=== PATIENT | female | born 1945 | race Caucasian/White ===

== ENCOUNTER 2018-07-25 13:32 | Outpatient (CLI) | payer MEDICARE, BC ==
[2018-07-25] MEDS ORDERED: IOPAMIDOL-300 50 ML VIAL ONE (13:44)
[2018-07-25] MEDS ORDERED: IOPAMIDOL-300 100 ML VIAL ONE (13:44)
[2018-07-25 14:07] LABS: CREATININE 0.8 mg/dL (0.4-1.0)
[2018-07-25] MEDS ORDERED: IOPAMIDOL-300 100 ML VIAL IVP ONE (15:41)
--- NOTE | 2018-07-25 16:47 | CT Report ---
Reason: NEW ONSET HEADACHE, ABDOMINAL PAIN Procedure Date: 07/25/2018 Accession Number: [id number] / [id number] Procedure: CT - Head W/O CPT Code: FULL RESULT: EXAM: CT HEAD EXAM DATE: 07/25/2018 03:40 PM. CLINICAL HISTORY: New onset headache COMPARISON: None. TECHNIQUE: Multiaxial CT images were obtained from the foramen magnum to the vertex. Reformats: Sagittal and coronal. IV contrast: None. In accordance with CT protocol optimization, one or more of the following dose reduction techniques were utilized for this exam: automated exposure control, adjustment of mA and/or KV based on patient size, or use of iterative reconstructive technique. FINDINGS: Parenchyma: No intraparenchymal hemorrhage. No evidence of mass, midline shift, or CT findings of infarction. May-white differentiation is distinct. Extraaxial Spaces: Normal for age. No subdural or epidural collections identified. Ventricles: Normal in size and position. Sinuses and Orbits: Imaged paranasal sinuses, orbits, and mastoids show no significant abnormality. Bones: No evidence of fracture or calvarial defect. Other: None. IMPRESSION: Normal head CT. RADIA
--- NOTE | 2018-07-25 16:56 | CT Report ---
Reason: NEW ONSET HEADACHE, ABDOMINAL PAIN Procedure Date: 07/25/2018 Accession Number: [id number] / [id number] Procedure: CT - Abdomen/Pelvis W/ CPT Code: FULL RESULT: EXAM: CT ABDOMEN AND PELVIS EXAM DATE: 07/25/2018 03:40 PM. CLINICAL HISTORY: Diffuse abdominal pain COMPARISONS: None. TECHNIQUE: Routine helical CT imaging was performed through the abdomen and pelvis. IV contrast: Isovue-300 100 cc. Enteric contrast: Yes. Reconstructions: Coronal and sagittal. In accordance with CT protocol optimization, one or more of the following dose reduction techniques were utilized for this exam: automated exposure control, adjustment of mA and/or KV based on patient size, or use of iterative reconstructive technique. FINDINGS: Lung Bases: Unremarkable. Liver: Normal. No masses. Gallbladder/Bile Ducts: Post cholecystectomy Spleen: Normal. Pancreas: Normal. Adrenal Glands: Normal. Kidneys: Right renal cyst 2 cm. Left kidney superior pole 1.1 cm cyst with possible septation. Smaller subcentimeter densities left kidney too small to characterize. Peritoneal Cavity/Bowel: Diverticulosis. No free fluid, free air or adenopathy. No masses or acute inflammatory process. The appendix is well visualized and normal. Pelvic Organs: Normal. The bladder and visualized pelvic organs are within normal limits. Vasculature: Atherosclerotic changes Bones: DJD spine. Other: None. IMPRESSION: 1. Left kidney 1.1 cm superior pole cyst with possible septation. Further evaluation could be with CT renal protocol 2. Simple cysts right kidney. 3. Diverticulosis RADIA
== END 2018-07-25 13:33 | disposition home or self-care (01) ==
LOC: DI 13:32
PROVIDERS: ATTEND Physician Assistant
DX: R51 Headache (principal); R10.9 Unspecified abdominal pain; N28.1 Cyst of kidney, acquired; K57.90 Diverticulosis of intestine, part unspecified, without perforation or abscess without bleeding
CPT/HCPCS: 36415; 70450; 74177; 82565; Q9967

== ENCOUNTER 2019-07-10 10:06 | Outpatient (CLI) | payer MEDICARE, BC ==
--- NOTE | 2019-07-13 08:27 | Mammography Report ---
Reason: SCREENING MAMMO Procedure Date: 07/10/2019 Accession Number: [id number] / [id number] Procedure: MGS - Screening Mammo Dig Bilat CPT Code: FULL RESULT: EXAM: Screening Mammo Dig Bilat DATE: 07/10/2019 10:25 AM CLINICAL HISTORY: Screening encounter. History of early menses. TECHNIQUE: (B) - Bilateral CC and MLO views were obtained. COMPARISON: 04/23/2016 and 12/23/2013. PARENCHYMAL PATTERN: (F) - The breast(s) demonstrate(s) diffuse fatty replacement. FINDINGS: There are no suspicious masses, calcifications, or areas of distortion. IMPRESSION: Negative examination. BI-RADS category 1. RECOMMENDATION: (ANNUAL) - Recommend routine annual screening mammography. BI-RADS CATEGORY: (1) - Negative. STANDARD QUALIFYING STATEMENTS: 1. This examination was reviewed with the aid of Computer-Aided Detection (CAD). 2. A negative or benign imaging report should not preclude biopsy if clinically suspicious findings are present. 3. Dense breasts may obscure an underlying neoplasm. 4. This examination was reviewed without the aid of 3D breast imaging (tomosynthesis).
== END 2019-07-10 10:07 | disposition home or self-care (01) ==
LOC: DI.S 10:06
PROVIDERS: ATTEND Family Medicine
DX: Z12.31 Encounter for screening mammogram for malignant neoplasm of breast (principal)
CPT/HCPCS: 77067

== ENCOUNTER 2020-02-29 16:21 | Emergency (ER) | payer MEDICARE, BC ==
[2020-02-29] MEDS ORDERED: CHERRY SYRUP 10 ML UDC PO ONE (16:48)
[2020-02-29] MEDS ORDERED: DEXAMETHASONE 10 MG/ML VIAL PO STA (16:48)
[2020-02-29] MEDS ORDERED: IPRATROPIUM/ALBUTEROL 3 ML NEB INH STA (16:48)
[2020-02-29] MEDS ORDERED: BENZONATATE 100 MG CAPSULE PO STA (16:58)
--- NOTE | 2020-02-29 17:51 | XRAY Report ---
Reason: chest pain Procedure Date: 02/29/2020 Accession Number: [id number] / [id number] Procedure: XR - Chest 1 View X-Ray CPT Code: 89692 Final Report FULL RESULT: EXAM: CHEST RADIOGRAPHY EXAM DATE: 02/29/2020 05:08 PM. CLINICAL HISTORY: Chest pain. COMPARISON: None. TECHNIQUE: 1 view. FINDINGS: Lungs/Pleura: Mild central bronchial wall thickening is noted. Hazy bibasilar pulmonary opacities are noted. No evidence for pleural effusion or pneumothorax. Mediastinum: Within exam limitations, the cardiomediastinal contour is normal. Other: None. IMPRESSION: 1. Central bronchial wall thickening could reflect underlying reactive airways or bronchitis. 2. Lower lung predominant hazy opacities could reflect atelectasis or possibly mild infection. RADIA
--- NOTE | 2020-02-29 18:10 | ED Physician Documentation ---
PD HPI URI - Stated complaint Stated Complaint: DIFFICULTY BREATHING - Chief complaint Chief Complaint: Resp - History obtained from History obtained from: Patient - History of Present Illness Timing - onset: How many days ago (10) Timing duration: Days (10) Timing details: Gradual onset, Still present, Waxing and waning Associated symptoms: Nasal congestion, Rhinorrhea, Dry cough, Chest pain, Dyspnea. No: Fever Contributing factors: Sick contact (the patient has a 5 y/o grandson whom she cares for one week at a time. She has not seen him in 3 weeks.) Improves by: Rest, Medication, MDI/nebulizer Similar symptoms before: Diagnosis (rad) Recently seen: Not recently seen - Additional information Additional information: Previously well 74-year-old female has developed a cough and congestion over the past 10 days. She does have a 5-year-old grandson that she sits and she has not seen him for 3 weeks. She does state that 2 of his teachers have tested positive for coronavirus. She states that she is not producing phlegm she has had a bimodal illness where she had cough and congestion that improved and then she got sicker and now is lost her voice as well. She feels some tightness in her chest some difficulty breathing she got some relief with an inhaler she is out of her inhaler this morning and she did go to the tent outside and be tested for the coronavirus prior to coming into the emergency department. Review of Systems Constitutional: reports: Fatigue. denies: Fever Eyes: denies: Decreased vision Ears: denies: Ear pain Nose: reports: Rhinorrhea / runny nose, Congestion Throat: reports: Sore throat Cardiac: reports: Chest pain / pressure. denies: Palpitations, Pedal edema, Calf pain Respiratory: reports: Dyspnea, Cough GI: denies: Abdominal Pain, Abdominal Swelling, Nausea, Vomiting : denies: Dysuria PD PAST MEDICAL HISTORY - Past Medical History Past Medical History: Yes Cardiovascular: Hypertension Respiratory: Asthma Neuro: Headaches Endocrine/Autoimmune: HyPOthyroidism GI: Hemorrhoids : None HEENT: None Psych: None Musculoskeletal: None Derm: None - Past Surgical History Past Surgical History: Yes General: Cholecystectomy /CONTRACT ADMIN: Hysterectomy HEENT: Tonsil/Adenoidectomy - Present Medications Home Medications: Ambulatory Orders Medication Instructions Recorded Confirmed Adrenal Complex 200 mg PO DAILY 09/09/18 Ascorbic Acid [Vitamin C] 500 mg PO DAILY 09/09/18 09/09/18 Aspirin [Adult Aspirin] 81 mg PO DAILY 09/09/18 09/09/18 Biotin 300 mcg PO DAILY 09/09/18 09/09/18 Calcium Carbonate [Calcium] 1,200 mg PO DAILY 09/09/18 09/09/18 Cetirizine [ZyrTEC] 10 mg PO DAILY 09/09/18 09/09/18 Cholecalciferol (Vitamin D3) 2,000 unit PO DAILY 09/09/18 09/09/18 [Vitamin D] Chromium Picolinate 200 mcg PO DAILY 09/09/18 09/09/18 Cyanocobalamin (Vitamin B-12) 1,000 mcg PO DAILY 09/09/18 09/09/18 [Vitamin B-12] Cyanocobalamin (Vitamin B-12) 1,000 mcg PO DAILY 09/09/18 09/09/18 [Vitamin B-12] Ferrous Sulfate, Dried [Slow 144 mg PO DAILY 09/09/18 09/09/18 Release Iron] Folic Acid 0.8 mg PO DAILY 09/09/18 09/09/18 Fosinopril Sodium 40 mg PO DAILY 09/09/18 09/09/18 Magnesium Oxide [Magnesium] 400 mg PO DAILY 09/09/18 09/09/18 Multivitamin [Multivitamins] 1 tab PO DAILY 09/09/18 09/09/18 Niacin [Niacin ER] 500 mg PO DAILY 09/09/18 09/09/18 Jackson-3/Dha/Epa/Fish Oil [Fish Oil 1 tab PO DAILY 09/09/18 09/09/18 1,000 mg Softgel] Potassium Gluconate 500 mg PO DAILY 09/09/18 09/09/18 Pyridoxine HCl (Vitamin B6) 1 tab PO DAILY 09/09/18 09/09/18 [Vitamin B-6] Riboflavin (Vitamin B2) 25 gm MC DAILY 09/09/18 09/09/18 [Riboflavin] Thiamine HCl [Vitamin B-1] 50 mg PO DAILY 09/09/18 09/09/18 Ubidecarenone [Co Q-10] 100 mg PO DAILY 09/09/18 09/09/18 Vitamin A 2,000 units PO DAILY 09/09/18 09/09/18 Vitamin E (Dl,Tocopheryl Acet) 200 unit PO DAILY 09/09/18 09/09/18 [Vitamin E] Zinc Oxide [Vitamelts Fast 15 mg PO DAILY 09/09/18 09/09/18 Dissolve] diphenhydrAMINE [Benadryl] 50 mg PO DAILY PM 09/09/18 09/09/18 estradioL [Estradiol] 1 each TD Q7D 09/09/18 09/09/18 Albuterol Sulf [Ventolin Hfa 1 - 2 puffs INH Q4HR PRN #1 inhaler 02/29/20 Inhaler] Amox/Clav 875/125 [Augmentin] 1 each PO Q12H #20 tablet 02/29/20 Benzonatate [Tessalon Perle] 100 - 200 mg PO TID PRN #30 capsule 02/29/20 - Allergies Allergies/Adverse Reactions: Allergies Allergy/AdvReac Type Severity Reaction Status Date / Time Dkzkjay-Ftx-Cno Reductase AdvReac Unknown Cramps Verified 09/09/18 15:16 Inhibitor Sulfa (Sulfonamide AdvReac Unknown Rash Verified 09/09/18 15:16 Antibiotics) - Social History Does the pt smoke?: No Smoking Status: Never smoker Does the pt drink ETOH?: Yes Does the pt have substance abuse?: No - Immunizations Immunizations are current?: No Immunizations: TDAP >10years/unknown - POLST Patient has POLST: No PD ED PE NORMAL - Vitals Vital signs reviewed: Yes (hypertensive ) - General General: Alert and oriented X 3, No acute distress, Well developed/nourished - HEENT HEENT: Atraumatic, PERRL, EOMI, Other (left TM is inflamed with rounding of the umbo the right is less involved. The pharynx shows general erythema and no exudate. ) - Neck Neck: Supple, no meningeal sign, No bony TTP - Cardiac Cardiac: RRR, No murmur - Respiratory Respiratory: No respiratory distress, Other (end insp wheeze is light. ) - Abdomen Abdomen: Soft, Non tender - Back Back: No CVA TTP, No spinal TTP - Derm Derm: Normal color, Warm and dry, No rash - Extremities Extremities: No deformity, No edema, No calf tenderness / cord - Neuro Neuro: Alert and oriented X 3, steeping press tender 2-12 intact, No motor deficit, No sensory deficit Eye Opening: Spontaneous Motor: Obeys Commands Verbal: Oriented GCS Score: 15 - Psych Psych: Normal mood, Normal affect Results - Vitals Vitals: Vital Signs - 24 hr 02/29/20 02/29/20 02/29/20 16:27 17:06 17:13 Temperature 36.7 C Heart Rate 66 66 70 Respiratory 16 14 18 Rate Blood Pressure 154/76 H 164/68 H O2 Saturation 100 100 02/29/20 18:00 Temperature Heart Rate 67 Respiratory 20 Rate Blood Pressure 168/74 H O2 Saturation 100 Oxygen O2 Source Room air - Rads (name of study) chest Radiology: Prelim report reviewed (Impression: 1. Central bronchial wall thickening could reflect underlying reactive airways or bronchitis. 2. Lower lung predominant hazy opacities could reflect atelectasis or possibly mild infection.), EMP read indepedently, See rad report PD MEDICAL DECISION MAKING - ED course Complexity details: reviewed results, re-evaluated patient, considered differential, d/w patient ED course: 74-year-old female with a bimodal illness of 3 weeks duration comes in today with cough congestion chest pain sore throat and wheezing. She has improvement with a DuoNeb treatment she is administered a dose of dexamethasone and on examination she has a left otitis. She has been tested for COVID. Today she is not hypoxic and afebrile. She is at risk for the COVID and has another explanation for her symptoms. She will return for worsening. Departure - Departure Disposition: 01 Home, Self Care Clinical Impression: Upper respiratory tract infection Qualifiers: URI type: unspecified viral URI Qualified Code(s): J06.9 - Acute upper respiratory infection, unspecified Otitis media Qualifiers: Otitis media type: suppurative Chronicity: acute Laterality: left Recurrence: non-recurrent Spontaneous tympanic membrane rupture: without spontaneous rupture Qualified Code(s): H66.002 - Acute suppurative otitis media without spontaneous rupture of ear drum, left ear Reactive airway disease Qualifiers: Asthma severity: mild Asthma persistence: intermittent Asthma complication type: with acute exacerbation Qualified Code(s): J45.21 - Mild intermittent asthma with (acute) exacerbation Instructions: ED Bronchitis Asthmatic, ED Otitis Media Acute Adult, [place] Respiratory Syndrome MERS Follow-Up: Damien David MD [Primary Care Provider] - Prescriptions: Albuterol Sulf [Ventolin Hfa Inhaler] 1 - 2 puffs INH Q4HR PRN #1 inhaler PRN Reason: Shortness Of Air/Wheezing Amox/Clav 875/125 [Augmentin] 1 each PO Q12H #20 tablet Benzonatate [Tessalon Perle] 100 - 200 mg PO TID PRN #30 capsule PRN Reason: Cough Comments: Today you were tested for coronavirus and the recommendation is to go home and self isolate. You should have results of your test within 3 days. In the meantime treatment of the middle ear infection and the reactive airway disease with the inhaler and the antibiotic is important.
[2020-02-29 18:41] VITALS: BP 154/113
== END 2020-02-29 18:41 | disposition home or self-care (01) ==
LOC: ED 16:21
DX: J06.9 Acute upper respiratory infection, unspecified (principal); H66.002 Acute suppurative otitis media without spontaneous rupture of ear drum, left ear; J45.21 Mild intermittent asthma with (acute) exacerbation; I10 Essential (primary) hypertension; R05 Cough; R50.9 Fever, unspecified
CPT/HCPCS: 71045; 81599; 94640; 99283; 99284; A9270

== ENCOUNTER 2020-02-29 19:04 | Outpatient (CLI) | payer MEDICARE, BC | END 2020-02-29 19:05 | disposition home or self-care (01) | LOC: COV 19:04 | PROVIDERS: ATTEND Family Medicine | DX: R05 Cough (principal); R50.9 Fever, unspecified | CPT/HCPCS: 81599 ==

== ENCOUNTER 2020-03-20 12:12 | Emergency (ER) | payer MEDICARE, BC ==
[2020-03-20 12:54] LABS: BILIRUBIN,URINE NEGATIVE (NEGATIVE); GLUCOSE, URINE (UA) NEGATIVE (NEGATIVE); KETONES,URINE (UA) TRACE mg/dL (NEGATIVE); LEUKOCYTE ESTERASE, URINE TRACE (NEGATIVE); NITRITE,URINE NEGATIVE (NEGATIVE); OCCULT BLOOD,URINE TRACE-INTA (NEGATIVE); PROTEIN,URINE 30 mg/dL (NEGATIVE); UROBILINOGEN,URINE 0.2 (NORMAL) E.U./dL (NORMAL)
[2020-03-20 13:01] LABS: CLARITY,URINE CLEAR (CLEAR)
[2020-03-20 13:04] LABS: BASOPHILS % (AUTO) 0.3 %; EOSINOPHILS # (AUTO) 0.7 10^3/uL (0.0-0.7); EOSINOPHILS % (AUTO) 10.6 %; HGB - HEMOGLOBIN 15.9 g/dL (12.0-16.0); LYMPHOCYTES # (AUTO) 1.2 10^3/uL (1.5-3.5); LYMPHOCYTES % (AUTO) 17.7 %; MEAN CORPUSCULAR HEMOGLOBIN 27.6 pg (27.0-31.0); MEAN CORPUSCULAR HGB CONC 31.8 g/dL (32.0-36.0); MEAN CORPUSCULAR VOLUME 86.8 fL (81.0-99.0); MEAN PLATELET VOLUME 9.8 fL (7.9-10.8); MONOCYTES # (AUTO) 0.4 10^3/uL (0.0-1.0); MONOCYTES % (AUTO) 5.4 %; NEUTROPHILS # (AUTO) 4.5 10^3/uL (1.5-6.6); NEUTROPHILS % (AUTO) 65.6 %; PLT - PLATELET COUNT 255 10^3/uL (130-450); RED BLOOD COUNT 5.76 10^6/uL (4.20-5.40); RED CELL DISTRIBUTION WIDTH 15.4 % (12.0-15.0); WHITE BLOOD COUNT 6.9 x10^3/uL (4.8-10.8)
[2020-03-20 13:16] LABS: BACTERIA,URINE Rare /HPF (None Seen); RBC,URINE None Seen /HPF (0-5); SQUAMOUS EPITHELIAL CELL,UR RARE Squamous (<= Few)
[2020-03-20 13:17] LABS: CRYSTALS,URINE 3-5 Calcium Oxalate /LPF
[2020-03-20 13:36] LABS: CALCIUM 9.1 mg/dL (8.5-10.3)
--- NOTE | 2020-03-20 13:58 | ED Physician Documentation ---
History of Present Illness - Stated complaint Stated Complaint: VOMITING/FEVER/COUGH - Chief complaint Chief Complaint: Abd Pain - History obtained from History obtained from: Patient - History of Present Illness Timing: How many weeks ago (1) - Additonal information Additional information: 74-year-old female has had an upper respiratory infection for the past 6 weeks. She was seen here 3 weeks ago and treated for otitis with Augmentin and she took a 10-day course that seemed to help and since then she has had a steady recurrence of her symptoms this is worsened and today she is awakened with a rash over her entire body. She has not been on any new medications in the past 10 days. She has had fever she has had cough congestion and vomiting. She luba cates that she has had scant urine output despite drinking plenty of fluids. Review of Systems Constitutional: reports: Fever, Chills, Myalgias, Fatigue Eyes: denies: Decreased vision Ears: denies: Ear pain Nose: reports: Rhinorrhea / runny nose, Congestion Throat: reports: Sore throat Cardiac: denies: Chest pain / pressure, Palpitations Respiratory: reports: Dyspnea, Cough GI: denies: Abdominal Pain, Nausea, Vomiting : denies: Dysuria, Frequency Skin: reports: Rash Musculoskeletal: denies: Neck pain, Back pain, Extremity pain Neurologic: denies: Generalized weakness, Focal weakness, Numbness PD PAST MEDICAL HISTORY - Past Medical History Cardiovascular: Hypertension Respiratory: Asthma Neuro: Headaches Endocrine/Autoimmune: HyPOthyroidism GI: Hemorrhoids : None HEENT: None Psych: None Musculoskeletal: None Derm: None - Past Surgical History Past Surgical History: Yes General: Cholecystectomy /STYLE ADVISOR: Hysterectomy HEENT: Tonsil/Adenoidectomy - Present Medications Home Medications: Ambulatory Orders Medication Instructions Recorded Confirmed Azithromycin [Zithromax] 250 mg PO DAILY #6 tablet 03/20/20 Benzonatate [Tessalon Perle] 100 - 200 mg PO TID PRN #30 capsule 03/20/20 Fosinopril Sodium 20 mg PO 03/20/20 estradioL [Estradiol] 03/20/20 - Allergies Allergies/Adverse Reactions: Allergies Allergy/AdvReac Type Severity Reaction Status Date / Time Robqdla-Ldx-Nkc Reductase AdvReac Unknown Cramps Verified 03/20/20 12:43 Inhibitor Sulfa (Sulfonamide AdvReac Unknown Rash Verified 03/20/20 12:43 Antibiotics) - Social History Does the pt smoke?: No Smoking Status: Never smoker Does the pt drink ETOH?: Yes Does the pt have substance abuse?: No - Immunizations Immunizations are current?: No Immunizations: TDAP >10years/unknown - POLST Patient has POLST: No PD ED PE NORMAL - Vitals Vital signs reviewed: Yes (normal ) - General General: Alert and oriented X 3, No acute distress, Well developed/nourished - HEENT HEENT: Atraumatic, PERRL, EOMI, Pharynx benign, Other (right TM is mildly inflamed the left is more involved with distortion of the landmarks. Dry mucous membranes. ) - Neck Neck: Supple, no meningeal sign, No bony TTP - Cardiac Cardiac: RRR, No murmur - Respiratory Respiratory: No respiratory distress, Clear bilaterally - Abdomen Abdomen: Soft, Non tender - Back Back: No CVA TTP, No spinal TTP - Derm Derm: Normal color, Warm and dry, Other (generalized erythematous plaque ) - Extremities Extremities: No deformity, No edema - Neuro Neuro: Alert and oriented X 3, cat tender 2-12 intact, No motor deficit, No sensory deficit, Normal speech Eye Opening: Spontaneous Motor: Obeys Commands Verbal: Oriented GCS Score: 15 - Psych Psych: Normal mood, Normal affect Results - Vitals Vitals: Vital Signs - 24 hr 03/20/20 03/20/20 12:38 14:13 Temperature 36.8 C Heart Rate 55 L 74 Respiratory 16 16 Rate Blood Pressure 129/78 104/71 O2 Saturation 99 100 Oxygen O2 Source Room air - Labs Labs: Laboratory Tests 03/20/20 03/20/20 03/20/20 12:25 13:00 13:18 WBC 6.9 RBC 5.76 H Hgb 15.9 Hct 50.0 H MCV 86.8 MCH 27.6 MCHC 31.8 L RDW 15.4 H Plt Count 255 MPV 9.8 Neut # (Auto) 4.5 Lymph # (Auto) 1.2 L [place] # (Auto) 0.4 Eos # (Auto) 0.7 Baso # (Auto) 0.0 Absolute Nucleated RBC 0.00 Nucleated RBC % 0.0 Sodium 129 L Potassium 4.7 Chloride 100 L Carbon Dioxide 20 L Anion Gap 9.0 BUN 15 Creatinine 1.1 H Estimated GFR (MDRD) 49 L Glucose 113 H Calcium 9.1 Total Bilirubin 0.3 AST 33 ALT 20 Alkaline Phosphatase 45 Total Protein 7.3 Albumin 3.8 Globulin 3.5 Albumin/Globulin Ratio 1.1 Lipase 26 Urine Color YELLOW Urine Clarity CLEAR Urine pH 6.0 Ur Specific Waddy 1.025 Urine Protein 30 H Urine Glucose (UA) NEGATIVE Urine Ketones TRACE Urine Occult Blood TRACE-INTA Urine Nitrite NEGATIVE Urine Bilirubin NEGATIVE Urine Urobilinogen 0.2 (NORMAL) Ur Leukocyte Esterase TRACE H Urine RBC None Seen Urine WBC 0-3 Ur Squamous Epith Cells RARE Squamous Urine Crystals 3-5 Calcium Oxalate Urine Bacteria Rare Ur Microscopic Review INDICATED Urine Culture Comments INDICATED PD MEDICAL DECISION MAKING - ED course Complexity details: reviewed old records, reviewed results, re-evaluated patient, considered differential, d/w patient ED course: 84-year-old female with an undulating upper respiratory tract infection has otitis on exam she has persistence of this otitis and despite having some improvement with the Augmentin she is worse again. We will switch her antibiotic to a azithromycin and here in the emergency department she is given a dose of Rocephin and dexamethasone. She does have a allover body rash most consistent with pityriasis rosea. Departure - Departure Disposition: 01 Home, Self Care Clinical Impression: Pityriasis rosea-like skin eruption Otitis media Qualifiers: Otitis media type: suppurative Chronicity: acute Laterality: bilateral Recurrence: non-recurrent Spontaneous tympanic membrane rupture: without spontaneous rupture Qualified Code(s): H66.003 - Acute suppurative otitis media without spontaneous rupture of ear drum, bilateral Condition: Stable Instructions: ED Otitis Media Acute Adult, ED Pityriasis Rosea Follow-Up: Damien David MD [Primary Care Provider] - Prescriptions: Azithromycin [Zithromax] 250 mg PO DAILY #6 tablet Benzonatate [Tessalon Perle] 100 - 200 mg PO TID PRN #30 capsule PRN Reason: Cough
[2020-03-20 14:13] LABS: ALBUMIN 3.8 g/dL (3.2-5.5); ALBUMIN/GLOBULIN RATIO 1.1 (1.0-2.2); BILIRUBIN,TOTAL 0.3 mg/dL (0.2-1.0); CREATININE 1.1 mg/dL (0.4-1.0); TOTAL PROTEIN 7.3 g/dL (6.7-8.2)
[2020-03-20] MEDS: cefTRIAXone 1 GM in SODIUM CHLORIDE 0.9% MINIBAG 100 ML IV STA (14:13)
[2020-03-20 14:16] VITALS: BP 104/71
[2020-03-20] MEDS: DEXAMETHASONE 10 MG/ML VIAL IVP STA (14:16)
[2020-03-20] MEDS: LIDOCAINE 1% 2 ML VIAL MC ONE (14:45)
[2020-03-20] MEDS: cefTRIAXone 1 GM VIAL IM STA (14:45)
== END 2020-03-20 14:52 | disposition home or self-care (01) ==
LOC: ED 12:12
DX: L42 Pityriasis rosea (principal); H66.003 Acute suppurative otitis media without spontaneous rupture of ear drum, bilateral; J06.9 Acute upper respiratory infection, unspecified; I10 Essential (primary) hypertension; E03.9 Hypothyroidism, unspecified
CPT/HCPCS: 36415; 80053; 81001; 81003; 83690; 85025; 87077; 87086; 96365; 96375; 99284

== ENCOUNTER 2020-04-13 10:28 | Outpatient (CLI) | payer MEDICARE, BC ==
--- NOTE | 2020-04-13 15:11 | XRAY Report ---
Reason: COUGH Procedure Date: 04/13/2020 Accession Number: [id number] / [id number] Procedure: XR - Chest 2 View X-Ray CPT Code: 78063 Final Report FULL RESULT: EXAM: CHEST RADIOGRAPHY EXAM DATE: 04/13/2020 10:44 AM. CLINICAL HISTORY: COUGH. COMPARISON: CHEST 1 VIEW 02/29/2020 4:51 PM. TECHNIQUE: 2 views. FINDINGS: Lungs/Pleura: Minimal atelectatic changes seen at the left base. Remaining lung antony are clear. Mediastinum: Heart and mediastinal contours are unremarkable. Other: None. IMPRESSION: Minimal atelectatic changes at the left base, otherwise unremarkable exam. RADIA
== END 2020-04-13 10:29 | disposition home or self-care (01) ==
LOC: DI 10:28
PROVIDERS: ATTEND Nurse Practitioner Family
DX: J98.11 Atelectasis (principal); Z20.828 Contact with and (suspected) exposure to other viral communicable diseases
CPT/HCPCS: 71046

== ENCOUNTER 2021-09-20 10:59 | Outpatient (CLI) | payer MEDICARE, BC ==
--- NOTE | 2021-09-20 12:44 | DEXA Report ---
PROCEDURE: DEXA Spine and/or Hip INDICATIONS: ASYMPTOMATIC MENOPAUSAL STATE TECHNIQUE: Dual energy x-ray absorptiometry (DXA) was performed on a Next Gen Illumination System. Regions measur ed are the AP Spine, femoral neck, and if needed forearm. COMPARISON: None. FINDINGS: Lumbar Spine: Bone Mineral Density 1.421 g/cm/cm,T score 2, normal Left Femoral Neck: Bone Mineral Density 0.837 g/cm/cm, T score -1.4, osteopenia. (T score greater or equal to -1.0: NORMAL) (T score from -1.1 to -2.4: OSTEOPENIA) (T score less than or equal to -2.5 to: OSTEOPOROSIS) Impression: Osteopenia of the left femoral neck. Patients with diagnosis of osteoporosis or osteopenia should have regular bone mineral density assess ment. For those eligible for Medicare, routine testing is allowed once every 2 years. Testing frequ ency can be increased for patients who have rapidly progressing disease or for those who are receivin g medical therapy to restore bone mass. Reviewed by: Vahid Moreno MD on 09/20/2021 12:43 PM PDT Approved by: Vahid Moreno MD on 09/20/2021 12:43 PM PDT Station ID: [id number]
== END 2021-09-20 11:00 | disposition home or self-care (01) ==
LOC: DI 10:59
PROVIDERS: ATTEND Nurse Practitioner Family
DX: Z78.0 Asymptomatic menopausal state (principal); M85.88 Other specified disorders of bone density and structure, other site

== ENCOUNTER 2021-09-20 11:30 | Outpatient (CLI) | payer MEDICARE, BC ==
--- NOTE | 2021-09-21 09:58 | Mammography Report ---
BILATERAL DIGITAL SCREENING MAMMOGRAM 3D/2D: 09/20/2021 CLINICAL: Routine screening. Comparison is made to exams dated: 07/10/2019 mammogram, 04/23/2016 mammogram, 12/23/2013 mammogram, and 10/19/2011 mammogram - [facility]. The tissue of both breasts is predominantly fa tty. No significant masses, calcifications, or other findings are seen in either breast. There has been no significant interval change. IMPRESSION: NEGATIVE There is no mammographic evidence of malignancy. A 1 year screening mammogram is recommended. This exam was interpreted at Station ID: [id number]. NOTE: For mammograms, a report in lay terms will be sent to the patient. Approximately 15% of breast malignancies will not be visualized mammographically. In the management of a palpable breast mass, a negative mammogram must not discourage biopsy of a clinically suspicious lesion. Electronically Signed By: Syed Louis acr/penrad:09/20/2021 12:25:10 ACR BI-RADS Category 1: Negative [id number] PARENCHYMAL PATTERN: (F) - The breast(s) demonstrate(s) diffuse fatty replacement. BI-RADS CATEGORY: (1) - 1 RECOMMENDATION: (ANNUAL) - Recommend routine annual screening mammography. [id number] 1 year screening LATERALITY: (B)
== END 2021-09-20 23:59 | disposition home or self-care (01) ==
LOC: DI 11:30
PROVIDERS: ATTEND Nurse Practitioner Family
DX: Z12.31 Encounter for screening mammogram for malignant neoplasm of breast (principal)

== ENCOUNTER 2023-03-08 08:00 | Outpatient (CLI) | payer MEDICARE, BC ==
--- NOTE | 2023-03-08 13:44 | XRAY Report ---
PROCEDURE: Chest 2 View X-Ray INDICATIONS: BACTERIAL PNEUMONIA TECHNIQUE: 2 views of the chest were acquired. COMPARISON: None. FINDINGS: Surgical changes and devices: None. Lungs and pleura: No pleural effusions or pneumothorax. Lungs are clear. Mediastinum: Mediastinal contours appear normal. Heart size is mildly prominent. Bones and chest wall: No suspicious bony lesions. Overlying soft tissues appear unremarkable. IMPRESSION: No acute pulmonary process. Reviewed by: Gloria Kapoor MD on 03/08/2023 1:43 PM PDT Approved by: Gloria Kapoor MD on 03/08/2023 1:43 PM PDT Station ID: [id number]
== END 2023-03-08 23:59 | disposition home or self-care (01) ==
LOC: DI.S 08:00
PROVIDERS: ATTEND Emergency Medicine
DX: J15.9 Unspecified bacterial pneumonia (principal)

== ENCOUNTER 2023-03-25 08:00 | Outpatient (CLI) | payer MEDICARE, BC ==
--- NOTE | 2023-03-26 11:13 | XRAY Report ---
PROCEDURE: Chest 2 View X-Ray INDICATIONS: EXACERBATION OF MILD PERSISTENT ASTHMA TECHNIQUE: 2 views of the chest were acquired. COMPARISON: Chest x-ray 04/13/2020 FINDINGS: Surgical changes and devices: None. Lungs and pleura: No pleural effusions or pneumothorax. Lungs are clear. Mediastinum: Mediastinal contours appear normal. Heart size is normal. Bones and chest wall: No suspicious bony lesions. Overlying soft tissues appear unremarkable. IMPRESSION: No acute pulmonary process. Reviewed by: Gloria Kapoor MD on 03/26/2023 11:12 AM PDT Approved by: Gloria Kapoor MD on 03/26/2023 11:12 AM PDT Station ID: [id number]
== END 2023-03-25 23:59 | disposition home or self-care (01) ==
LOC: DI.S 08:00
PROVIDERS: ATTEND Nurse Practitioner Family
DX: J45.31 Mild persistent asthma with (acute) exacerbation (principal)